=== PATIENT | female | born 1970 | race Caucasian/White ===

== ENCOUNTER 2021-02-12 09:47 | Inpatient (IN) ==
[2021-02-12] MEDS ORDERED: cefTRIAXone 1,000 MG in Water for inj. (sterile) 10 ML IVP ONE (10:36)
[2021-02-12 11:19] LABS: Basophils # 0.1 K/mcL (0.0-0.2); Basophils % 1.1 %; Eosinophils # 0.5 K/mcL (0.0-0.6); Eosinophils % 5.3 %; Hematocrit 45.3 % (35.3-44.9); Hemoglobin 13.9 g/dL (11.5-15.4); Immature Granulocytes % 0.9 % (0-4); Lymphocytes % 21.2 %; Mean Corpuscular HGB Conc 30.7 g/dL (31.6-35.5); Mean Corpuscular Hemoglobin 29.3 pg (28.0-33.3); Mean Corpuscular Volume 95.4 fL (83.0-100.0); Mean Platelet Volume 9.8 fL (9.4-12.4); Monocytes # 0.6 K/mcL (0.0-1.3); Monocytes % 5.7 %; Neutrophils # 6.3 K/mcL (1.6-8.9); Platelet Count 331 K/mcL (140-400); Red Blood Count 4.75 M/mcL (3.82-4.97); Red Cell Distribution Width 12.2 % (11.5-14.5); Segmented Neutrophils % 65.8 %; White Blood Count 9.6 K/mcL (4.3-11.1)
[2021-02-12 11:27] LABS: Bacteria,Urine Few per hpf (None-Few); Bilirubin,Urine Small (Negative); Blood,Urine Trace (Negative); Clarity,Urine Turbid (Clear); Color,Urine Dark-Yellow (Yellow); Glucose,Urine (UA) Normal (Normal); Ketones,Urine Negative (Negative); Leukocyte Esterase,Urine Large (Negative); Mucus,Urine Few per lpf (None-Few); Nitrite,Urine Positive (Negative); Protein,Urine 30 mg/dL (Neg-Trace); Specific Gravity,Urine 1.029 (1.010-1.025); Squamous Epithelial Cell,Urine Moderate per hpf (None-Few); WBC,Urine 50-100 per hpf (0-3)
[2021-02-12 11:38] LABS: Alanine Aminotransferase 63 Units/L (7-52); Albumin 4.3 g/dL (3.5-5.7); Albumin/Globulin Ratio 1.2 (1.1-2.2); Alkaline Phosphatase 67 Units/L (34-104); Aspartate Amino Transferase 52 Units/L (13-39); BUN/Creatinine Ratio 17 (6-26); Bilirubin,Direct 0.1 mg/dL (0.0-0.2); Bilirubin,Indirect 0.6 mg/dL (0.0-1.0); Bilirubin,Total 0.7 mg/dL (0.3-1.0); Blood Urea Nitrogen 12 mg/dL (6-20); Calcium 9.5 mg/dL (8.6-10.3); Carbon Dioxide 28 mEq/L (23-29); Chloride 100 mEq/L (98-107); Globulin 3.5 g/dL (2.4-3.5); Glucose 146 mg/dL (70-105); Osmolality,Calculated 286 (280-300); Sodium 137 mEq/L (136-145); Total Protein 7.8 g/dL (6.4-8.9); eGFR For African Americans > 60 (> 60); eGFR For Non-African Americans > 60 (> 60)
[2021-02-12] MEDS ORDERED: Ertapenem 1,000 MG in 0.9 % Sodium Chloride Mini Bag 100 ML IVPB STA (12:20)
[2021-02-12] MEDS ORDERED: Ketorolac 15 MG/ML VIAL IVP ONE (12:29)
[2021-02-12] MEDS ORDERED: 0.9 % Sodium Chloride 1,000 ML IVC ONE (12:29)
[2021-02-12] MEDS ORDERED: Acetaminophen 325 MG TABLET PO PRN (14:38)
[2021-02-12] MEDS ORDERED: Melatonin 3 MG TABLET PO PRN (14:38)
[2021-02-12] MEDS ORDERED: Naloxone 0.4 MG/ML INJ IVP PRN (14:38)
[2021-02-12] MEDS ORDERED: Ketorolac 15 MG/ML VIAL IVP PRN (14:39)
[2021-02-12] MEDS: Ketorolac 30 MG/ML VIAL IVP PRN (16:43)
[2021-02-12] MEDS: Ondansetron 4 MG/2 ML VIAL IVP PRN (16:43)
[2021-02-12] MEDS: Gabapentin 300 MG CAPSULE PO SCH (20:52)
[2021-02-13] MEDS: Ondansetron 4 MG/2 ML VIAL IVP PRN ×3 (00:26→20:43)
[2021-02-13] MEDS: Ketorolac 30 MG/ML VIAL IVP PRN ×4 (00:29→20:43)
[2021-02-13 02:17] LABS: Hematocrit 39.6 % (35.3-44.9); Hemoglobin 12.6 g/dL (11.5-15.4); Mean Corpuscular HGB Conc 31.8 g/dL (31.6-35.5); Mean Corpuscular Hemoglobin 30.2 pg (28.0-33.3); Mean Platelet Volume 10.1 fL (9.4-12.4); Platelet Count 308 K/mcL (140-400); Red Blood Count 4.17 M/mcL (3.82-4.97); Red Cell Distribution Width 12.1 % (11.5-14.5); White Blood Count 9.9 K/mcL (4.3-11.1)
[2021-02-13 02:40] LABS: BUN/Creatinine Ratio 23 (6-26); Blood Urea Nitrogen 16 mg/dL (6-20); Calcium 9.1 mg/dL (8.6-10.3); Carbon Dioxide 28 mEq/L (23-29); Chloride 103 mEq/L (98-107); Glucose 136 mg/dL (70-105); Magnesium 2.1 mg/dL (1.6-2.6); Osmolality,Calculated 289 (280-300); Potassium 3.9 mEq/L (3.5-5.1); Sodium 138 mEq/L (136-145); eGFR For African Americans > 60 (> 60); eGFR For Non-African Americans > 60 (> 60)
[2021-02-13] MEDS: *HR* Enoxaparin 40 MG/0.4 ML SYRINGE SQ SCH (06:18)
[2021-02-13] MEDS: Loratadine 10 MG TABLET PO SCH (10:21)
[2021-02-13] MEDS: Ertapenem 1,000 MG in 0.9 % Sodium Chloride Mini Bag 100 ML IVPB SCH (10:22)
[2021-02-13] MEDS: Gabapentin 300 MG CAPSULE PO SCH (20:02)
[2021-02-14] MEDS: Ondansetron 4 MG/2 ML VIAL IVP PRN ×2 (05:19→11:54)
[2021-02-14] MEDS: Ketorolac 30 MG/ML VIAL IVP PRN (05:19)
[2021-02-14] MEDS: *HR* Enoxaparin 40 MG/0.4 ML SYRINGE SQ SCH (06:00)
[2021-02-14 06:53] VITALS: TEMP 98.2
[2021-02-14] MEDS: Loratadine 10 MG TABLET PO SCH (10:25)
[2021-02-14] MEDS: Ertapenem 1,000 MG in 0.9 % Sodium Chloride Mini Bag 100 ML IVPB SCH (10:25)
[2021-02-14 10:35] VITALS: BP 157/94; PULSE 79; O2SAT 94
== END 2021-02-14 16:51 | disposition home health service (06) | DRG 463 ==
LOC: 3ANU 09:47 → EMEROOARM 09:47 → SUATTDRO 14:10 → 3ANU 15:11
PROVIDERS: ADMIT Internal Medicine; ATTEND Internal Medicine

== ENCOUNTER 2021-09-26 12:23 | Observation (INO) ==
[2021-09-26 13:00] LABS: Basophils # 0.1 K/mcL (0.0-0.2); Basophils % 0.8 %; Eosinophils # 0.4 K/mcL (0.0-0.6); Eosinophils % 4.2 %; Hemoglobin 14.9 g/dL (11.5-15.4); Immature Granulocytes % 0.2 % (0-4); Lymphocytes # 2.5 K/mcL (0.6-4.6); Lymphocytes % 29.7 %; Mean Corpuscular HGB Conc 32.4 g/dL (31.6-35.5); Mean Corpuscular Hemoglobin 29.8 pg (28.0-33.3); Mean Platelet Volume 9.9 fL (9.4-12.4); Monocytes # 0.7 K/mcL (0.0-1.3); Monocytes % 7.9 %; Neutrophils # 4.8 K/mcL (1.6-8.9); Platelet Count 330 K/mcL (140-400); Red Cell Distribution Width 12.5 % (11.5-14.5); Segmented Neutrophils % 57.2 %; White Blood Count 8.4 K/mcL (4.3-11.1)
[2021-09-26] MEDS ORDERED: Ertapenem 1,000 MG in 0.9 % Sodium Chloride Mini Bag 100 ML IVPB ONE (13:00)
[2021-09-26 13:16] LABS: BUN/Creatinine Ratio 34 (6-26); Blood Urea Nitrogen 21 mg/dL (6-20); Calcium 9.5 mg/dL (8.6-10.3); Carbon Dioxide 27 mEq/L (23-29); Chloride 106 mEq/L (98-107); Glucose 90 mg/dL (70-105); Osmolality,Calculated 289 (280-300); Potassium 4.1 mEq/L (3.5-5.1); Sodium 138 mEq/L (136-145); eGFR For African Americans > 60 (> 60); eGFR For Non-African Americans > 60 (> 60)
[2021-09-26] MEDS ORDERED: Naloxone 0.4 MG/ML INJ IVP PRN (13:35)
[2021-09-26] MEDS ORDERED: Ondansetron 4 MG/2 ML VIAL ONE (13:58)
[2021-09-26] MEDS: Ondansetron 4 MG/2 ML VIAL IVP PRN (14:00)
[2021-09-26] MEDS ORDERED: SUMATRIPTAN SUCCINATE 100 MG PO PRN (14:21)
[2021-09-26] MEDS: SUMAtriptan succinate 50 MG TABLET PO PRN ×2 (16:22→21:38)
[2021-09-26] MEDS ORDERED: Gabapentin 300 MG CAPSULE PO SCH (21:00)
[2021-09-27 03:20] LABS: Basophils # 0.1 K/mcL (0.0-0.2); Basophils % 0.7 %; Eosinophils # 0.5 K/mcL (0.0-0.6); Eosinophils % 5.3 %; Hematocrit 41.9 % (35.3-44.9); Hemoglobin 13.6 g/dL (11.5-15.4); Immature Granulocytes % 0.3 % (0-4); Lymphocytes # 3.2 K/mcL (0.6-4.6); Lymphocytes % 35.7 %; Mean Corpuscular HGB Conc 32.5 g/dL (31.6-35.5); Mean Corpuscular Hemoglobin 29.8 pg (28.0-33.3); Mean Corpuscular Volume 91.7 fL (83.0-100.0); Monocytes # 0.7 K/mcL (0.0-1.3); Monocytes % 7.4 %; Neutrophils # 4.6 K/mcL (1.6-8.9); Platelet Count 277 K/mcL (140-400); Red Blood Count 4.57 M/mcL (3.82-4.97); Red Cell Distribution Width 12.6 % (11.5-14.5); Segmented Neutrophils % 50.6 %
[2021-09-27 03:27] LABS: BUN/Creatinine Ratio 25 (6-26); Blood Urea Nitrogen 18 mg/dL (6-20); Calcium 9.1 mg/dL (8.6-10.3); Carbon Dioxide 27 mEq/L (23-29); Chloride 107 mEq/L (98-107); Glucose 112 mg/dL (70-105); Osmolality,Calculated 293 (280-300); Potassium 4.1 mEq/L (3.5-5.1); Sodium 140 mEq/L (136-145); eGFR For African Americans > 60 (> 60); eGFR For Non-African Americans > 60 (> 60)
[2021-09-27 07:32] VITALS: PULSE 65; O2SAT 94
[2021-09-27] MEDS: Ondansetron 4 MG/2 ML VIAL IVP PRN (07:54)
[2021-09-27] MEDS ORDERED: Ertapenem 1,000 MG in 0.9 % Sodium Chloride Mini Bag 100 ML IVPB SCH (09:00)
[2021-09-27 11:13] VITALS: BP 124/78; TEMP 98.4
== END 2021-09-27 13:46 | disposition home health service (06) ==
LOC: 3ANU 12:23 → EMEROOARM 12:23 → SUATTDRO 13:45 → 3ANU 14:55
PROVIDERS: ADMIT Hospitalist; ATTEND Registered Nurse